=== PATIENT | male | born 1990 | race Caucasian/White ===

== ENCOUNTER 2024-09-05 17:31 | Emergency (ER) | payer OTHER ==
[~2024-09-05] VITALS: Ht 172.7 cm; Wt 124.7 kg
[~2024-09-05 17:31] MED LIST: CEPH500 PO; CRUTCH3 USE; ERYT333ERA PO; HYDACE5 PO; OXYACE5T PO
[2024-09-05 18:34] VITALS: BP 168/108
== END 2024-09-05 18:38 | disposition home or self-care (01) ==
LOC: ER 17:31
DX: R59.0 Localized enlarged lymph nodes (principal); G93.31 Postviral fatigue syndrome
CPT/HCPCS: 99282